=== PATIENT | female | born 1985 | race African-American/Black ===

== ENCOUNTER 2019-04-01 14:10 | Emergency (ER) | payer MEDICAID ==
[~2019-04-01] VITALS: Ht 172.7 cm; Wt 100.0 kg
[2019-04-01 15:05] LABS: CLARITY URINE CLOUDY (CLEAR); COLOR URINE ORANGE (YELLOW); KETONES URINE NEGATIVE (NEGATIVE); LEUKOCYTE ESTERASE URINE 3+ (NEGATIVE); NITRITE URINE POSITIVE (NEGATIVE); OCCULT BLOOD URINE 3+ (NEGATIVE); PH URINE 6.5 (4.5-8.0); PROTEIN URINE 1+ (NEGATIVE); SPECIFIC GRAVITY URINE 1.023 (1.005-1.030)
[2019-04-01 16:58] VITALS: BP 113/79
== END 2019-04-01 18:44 | disposition left against medical advice (07) ==
LOC: ER 14:10
DX: N39.0 Urinary tract infection, site not specified (principal); Z53.21 Procedure and treatment not carried out due to patient leaving prior to being seen by health care provider
CPT/HCPCS: 81003; 81025

== ENCOUNTER 2023-08-07 18:40 | Emergency (ER) | payer MEDICAID ==
[~2023-08-07] VITALS: Ht 167.6 cm; Wt 75.0 kg
[2023-08-07 18:55] VITALS: O2SAT 99
[2023-08-07 22:05] VITALS: BP 121/76; PULSE 76; RESP 18; TEMP 98.4
== END 2023-08-07 22:15 | disposition home or self-care (01) ==
LOC: ER 18:40
DX: M79.89 Other specified soft tissue disorders (principal)
CPT/HCPCS: 73590; 93971; 99284